=== PATIENT | female | born 1945 | race Caucasian/White ===

== ENCOUNTER 2017-11-05 08:00 | Outpatient (CLI) | payer OTHER ==
[2015-09-07 07:04] VITALS: BMI 44.3
[~2017-11-05 08:00] MED LIST: BACLOFEN10 MG PO; CELEBREX 100 M100 MG PO; HYDROCODON-ACE1 EAC7 PO; HYDROCODONE-APA1 TAB PO; ULTRAM50 MG PO
== END 2017-11-05 09:00 | disposition home or self-care (01) ==
LOC: D.MAMMO 08:00
DX: Z12.31 Encounter for screening mammogram for malignant neoplasm of breast (principal)

== ENCOUNTER → 2018-03-07 14:50 | Outpatient (CLI) | payer OTHER ==
[2015-09-07 07:04] VITALS: BMI 44.3
== END | disposition home or self-care (01) ==
LOC: D.CT 14:50
DX: R10.32 Left lower quadrant pain (principal)